=== PATIENT | female | born 1945 | race Caucasian/White ===

== ENCOUNTER 2021-04-16 12:12 | Inpatient (IN) | payer MEDICARE ==
[~2021-04-16] VITALS: Ht 157.5 cm; Wt 64.0 kg
[2021-04-16 13:24] LABS: RED BLOOD COUNT 2.11 M/UL (4.00-5.10); WHITE BLOOD COUNT 9.6 K/UL (4.5-11.0)
[2021-04-16 13:28] LABS: HEMOGLOBIN 6.7 gm/dl (12.3-15.3)
[2021-04-16 13:53] LABS: BUN/CREATININE RATIO 15 (0-10)
[2021-04-16] MEDS ORDERED: LISINOPRIL20 MG PO (20:13)
[2021-04-16] MEDS ORDERED: METOPROLOL TAR100 MG PO (20:13)
[2021-04-16] MEDS ORDERED: LEVOTHYROXINE50 MCG PO (20:14)
[2021-04-16] MEDS ORDERED: AMLODIPINE BESYL5 MG PO (20:15)
[2021-04-16] MEDS ORDERED: PYRIDIUM200 MG PO (20:16)
[2021-04-17 06:54] LABS: WHITE BLOOD COUNT 9.1 K/UL (4.5-11.0)
[2021-04-17 06:58] LABS: HEMOGLOBIN 9.5 gm/dl (12.3-15.3); RED BLOOD COUNT 3.02 M/UL (4.00-5.10)
[2021-04-17] MEDS ORDERED: FOLIC ACID0.8 MG PO (10:54)
[2021-04-17] MEDS ORDERED: FERROUS SULFAT325 MG PO (10:54)
[2021-04-17] MEDS ORDERED: VITAMIN B-121000 MCG PO (10:55)
[2021-04-17] MEDS ORDERED: CLARITIN10 MG PO (10:55)
[2021-04-17] MEDS ORDERED: VITAMIN D325 MCG PO (10:55)
[2021-04-17] MEDS ORDERED: ATORVASTATIN CA10 MG PO (20:14)
[2021-04-18 06:10] LABS: HEMOGLOBIN 8.7 gm/dl (12.3-15.3); RED BLOOD COUNT 2.76 M/UL (4.00-5.10)
[2021-04-18 06:13] LABS: WHITE BLOOD COUNT 6.6 K/UL (4.5-11.0)
[2021-04-18] MEDS ORDERED: VITAMIN B-121000 MC2 SL (12:51)
[2021-04-18] MEDS ORDERED: LOPRESSOR 25 MG25 MG PO (12:51)
[2021-04-19 20:12] LABS: HEMATOCRIT 28.4 % (34.0-46.6)
== END 2021-04-18 13:43 | disposition home or self-care (01) | DRG 812 ==
LOC: ER1 12:12 → CDU 18:59 → M/S 18:59
PROVIDERS: Physician Assistant; Registered Nurse; ADMIT Internal Medicine
PROC: 30233N1 Transfusion of Nonautologous Red Blood Cells into Peripheral Vein, Percutaneous Approach (ICD-10-PCS; principal; 2021-04-16)
PROC: 3E03329 Introduction of Other Anti-infective into Peripheral Vein, Percutaneous Approach (ICD-10-PCS; 2021-04-16)
DX: D53.9 Nutritional anemia, unspecified (principal); N17.9 Acute kidney failure, unspecified; J96.11 Chronic respiratory failure with hypoxia; D46.9 Myelodysplastic syndrome, unspecified; Z20.822 Contact with and (suspected) exposure to COVID-19; I10 Essential (primary) hypertension; E03.9 Hypothyroidism, unspecified; R00.0 Tachycardia, unspecified; R31.29 Other microscopic hematuria; I25.10 Atherosclerotic heart disease of native coronary artery without angina pectoris; E78.5 Hyperlipidemia, unspecified; I95.9 Hypotension, unspecified; E86.0 Dehydration; Z79.899 Other long term (current) drug therapy; Z95.1 Presence of aortocoronary bypass graft; Z98.890 Other specified postprocedural states; Z82.49 Family history of ischemic heart disease and other diseases of the circulatory system; Z86.16 Personal history of COVID-19; Z91.81 History of falling; Z99.81 Dependence on supplemental oxygen
CPT/HCPCS: 36415; 36430; 36600; 71045; 80053; 81001; 82270; 82550; 82553; 82607; 82728; 82747; 82803; 83010; 83540; 83550; 83605; 83615; 83735; 83880; 83921; 84484; 85025; 85027; 85045; 86850; 86900; 86901; 86920; 87040; 87086; 93005; 96374; 96375; 99285; C9113; J0696; J7030; J7070; P9016; U0002